=== PATIENT | male | born 1985 | race Caucasian/White ===

== ENCOUNTER 2019-03-20 18:55 | Emergency (ER) | payer OTHER ==
[~2019-03-20] VITALS: Ht 185.4 cm; Wt 169.7 kg
[2019-03-20 19:25] VITALS: BP 128/71; PULSE 93; RESP 18; Ht 185.4 cm; Wt 169.7 kg
[2019-03-20] MEDS ORDERED: morphine 4 MG/ML VIAL IM STA (20:23)
--- NOTE | 2019-03-20 20:23 | ERD ---
ER Documentation Chief Complaint Chief Complaint here for "chronic joint pain and my diabetes" HPI This is a 33-year-old male who presents here to emergency department with multiple complaints including chronic joint pains, off medications for his diabetes. Stated that he has history of gout. Stated that he was placed on "Imethezine." Stated that he was off his Lantus insulin for about 2 months after he broke up with his girlfriend. Also stated that he was initially placed on metformin, then changed to Januvia, then changed to Lantus insulin. Stated that he also takes levothyroxine 100 mcg twice a day for his hypothyroidism. Denies headache, head injury, loss of consciousness, dizziness, neck pain, neck stiffness, throat pain, difficulty swallowing, difficulty breathing lying flat, shoulder pain, chest pain, back pain, abdominal pain, nausea, vomiting, constipation, diarrhea, urinary symptoms, loss of bowel and bladder control, trauma, injury, falls, difficulty walking due to pain, numbness or tingling sensation, calf pain, recent travel, recent major surgery in the last 3 weeks, calf pain, recent long travel, recent exposure to any illness, recent antibiotic use in the last 3 months, fever, chills, seizures. Past medical history: Surgical history: Social: Denies smoking, use of alcoholic beverages, use of illegal drugs. ROS All systems reviewed and are negative except as per history of present illness. Medications Home Meds Active Scripts Metformin* (Glucophage*) 500 Mg Tab, 500 MG PO BID, #60 TAB Prov:PASDELVIS REYES F 03/20/19 Omeprazole* (Omeprazole*) 40 Mg Capsule.dr, 40 MG PO DAILY, #30 CAP Prov:PASILABANDELVIS F 03/20/19 Diclofenac Sodium* (Diclofenac Sodium*) 50 Mg Tablet.dr, 50 MG PO TID PRN for PAIN, #30 TAB Prov:PASDELVIS REYES F 03/20/19 Tramadol HCl (Tramadol HCl) 50 Mg Tablet, 50 MG PO Q4 PRN for SEVERE PAIN LEVEL 7-10, #5 TAB Prov:PASILABANMARY ELLENAR F 03/20/19 Allergies Allergies: Coded Allergies: No Known Drug Allergies (Verified Allergy, Unknown, 03/20/19) PMhx/Soc Hx Miscellaneous Medical Probl: Yes (hypothyroid, gout) Hx Alcohol Use: No Hx Substance Use: No Hx Tobacco Use: No Physical Exam Vitals Vital Signs Date Temp Pulse Resp B/P (MAP) Pulse Ox O2 O2 Flow FiO2 Time Delivery Rate 03/20/19 97.6 93 18 128/71 96 19:25 (90) Physical Exam Const: No acute distress Head: Atraumatic Eyes: Normal Conjunctiva ENT: Normal External Ears, Nose and Mouth. Neck: Full range of motion. No meningismus. Resp: Clear to auscultation bilaterally Cardio: Regular rate and rhythm, no murmurs Abd: Soft, non tender, non distended. Normal bowel sounds Skin: No petechiae or rashes Back: No midline or flank tenderness Ext: No cyanosis, or edema. Right knee: Skin is not warm to touch. Good and full range of motion. No swelling. No deformity. Right ankle/toes has good and full range of motion. Right ankle/toes has no swelling/deformity. Right pedal pulses within normal limits. Left lower extremity is unremarkable. No neurovascular deficit. Neur: Awake and alert. No neurological deficit.. Psych: Normal Mood and Affect Results 24 hrs Laboratory Tests Test 03/20/19 19:53 Bedside Glucose 183 mg/dL Current Medications Medications Dose Sig/[place] Start Time Status Last (Trade) Ordered Route PRN Stop Time Admin Dose Reason Admin Colchicine 1.2 mg ONCE ONCE 03/20/19 DC 03/20/19 (Colchicine) PO 20:30 20:47 03/20/19 20:31 Colchicine 0.6 mg ONCE ONCE 03/20/19 DC (Colchicine) PO 20:30 03/20/19 20:31 Morphine 4 mg ONCE STAT 03/20/19 DC 03/20/19 Sulfate IM 20:23 20:32 (morphine) 03/20/19 20:25 Procedures/MDM Diagnostic tests: Blood sugar in triage was 189 mg/dL. Treatment: Colchicine. Morphine. Re-evaluation: Denies pain. No neurovascular deficit. Ambulatory with steady gait. Differential diagnosis I have low suspicion for fractures, compartment syndrome, septic joint. Final diagnosis: Chronic pain. Medication refill. Prescription: Metformin. Motrin. Follow-up with PCP in the next 24-48 hours. PCP to refer patient to pain specialist in the next 3 to 4 days. Come back here in the emergency department for any new symptoms or any worsening symptoms. All questions and concerns were answered. Patient and family members verbalized understanding and agreed with plan of care. Hemodynamically stable on discharge. Departure Diagnosis: Primary Impression: Gout flare Additional Impression: Medication refill Condition: Stable Additional Instructions: Follow-up with PCP in the next 24-48 hours. PCP to refer patient to pain specialist in the next 3 to 4 days. Come back here in the emergency department for any new symptoms or any worsening symptoms. DELVIS DENTON March 20, 2019 20:23
[2019-03-20] MEDS ORDERED: TRAM50TA2 PO (20:29)
[2019-03-20] MEDS ORDERED: COLCHICINE 0.6 MG TAB PO ONE ×2 (20:30)
[2019-03-20] MEDS ORDERED: OMEP40CA6 PO (20:30)
[2019-03-20] MEDS ORDERED: DICL50TA11 PO (20:30)
[2019-03-20] MEDS ORDERED: METF-849 PO (20:31)
== END 2019-03-20 21:29 | disposition home or self-care (01) ==
LOC: FTE 18:55
DX: M10.9 Gout, unspecified (principal); E03.9 Hypothyroidism, unspecified; E11.9 Type 2 diabetes mellitus without complications; Z76.0 Encounter for issue of repeat prescription; Z79.84 Long term (current) use of oral hypoglycemic drugs
CPT/HCPCS: 82962; 96372; J2270; Z7502; Z7610